=== PATIENT | female | born 1940 ===

== ENCOUNTER 2019-01-18 15:45 | Inpatient (IN) | payer MEDICARE, OTHER ==
[~2019-01-18] VITALS: Ht 157.5 cm; Wt 52.6 kg
[2019-01-18 16:25] VITALS: BP_SYST 134; BP_DIAS 73; BP_DIAS 76
--- NOTE | 2019-01-18 16:25 | NUR ---
PATIENT RECEIVED FROM [facility] PER STRETCHER. ALERT AND VERBALLY RESPONSIVE. ABLE TO ASSIST WITH TRANSFER FROM STRETCHER TO BED. SKIN WARM AND DRY TO TOUCH, RESPIRATION EVEN AND UNLABORED WITH O2 AT 2L VIA N/C. ABDOMEN SOFT AND NON DISTENDED WITH + BS IN ALL 4 QUADS. PATIENT ORIENTED TO SURROUNDINGS. BED IN LOWER POSITION AND LOCKED, CALL LIGHT AT REACH. INSTRUCTED TO CALL FOR ASSISTANCE NEEDED.
[2019-01-18 17:00] VITALS: BP 134/73
[2019-01-18] MEDS ORDERED: MELATONIN 5 MG TABLET PO PRN (17:30)
[2019-01-18] MEDS ORDERED: ACETAMINOPHEN/CODEINE 300MG - 30MG TAB PO PRN (17:30)
[2019-01-18] MEDS ORDERED: ALBUTEROL/IPRATROPIUM 3 ML NEB NEB PRN (17:30)
[2019-01-18] MEDS ORDERED: ACETAMINOPHEN 325 MG TAB PO PRN (17:30)
[2019-01-18] MEDS ORDERED: HYDRALAZINE HCL 20 MG/ML VIAL IV PRN (17:30)
[2019-01-18] MEDS ORDERED: ONDANSETRON HCL INJ 2MG/ML 2ML 2 MG/ML VIAL IV PRN (17:30)
--- NOTE | 2019-01-18 18:23 | Diagnostic Imaging Report ---
Examination: Single AP view of the chest. COMPARISON: None. INDICATION: Cough, flu DISCUSSION: Lines/tubes: None. Lungs: Right medial lower lung opacity. Left lung is clear. Pleura: No pleural effusion or pneumothorax. Heart and mediastinum: The heart and the mediastinum are unremarkable. Bones and soft tissues: No acute bony abnormalities. IMPRESSION: 1. Right medial lower lung opacity may reflect pneumonia Signed by: Dr. Dc Soto M.D. on 01/18/2019 6:19 PM
[2019-01-18] MEDS: ALBUTEROL/IPRATROPIUM 3 ML NEB NEB SCH (19:00)
[2019-01-18 19:14] VITALS: BP 134/73
--- NOTE | 2019-01-18 19:14 | NUR ---
PT IS RESTING IN BED WITH SON AT BEDSIDE. RESPIRATION IS EVEN AND UNLABORED, NO DISTRESS NOTED. BED IN THE LOWEST POSITION, LOCKED, AND CALL LIGHT WITHIN REACH. WILL CONTINUE TO MONITOR.
--- NOTE | 2019-01-18 19:31 | NUR ---
FLU SPECIMEN COLLECTED AND SENT TO THE LAB.
[2019-01-18 20:00] VITALS: BP 134/73
[2019-01-18] MEDS ORDERED: CEFTRIAXONE SOD 1 GM/NS 50 ML 50 ML IV SCH (20:00)
[2019-01-18] MEDS ORDERED: AZITHROMYCIN 500MG/NS 250 ML 250 ML IV SCH (20:00)
[2019-01-18] MEDS ORDERED: SODIUM CHLORIDE 0.9% 250ML 250 ML ONE (20:22)
[2019-01-19] VITALS: BP 142/67
[2019-01-19] MEDS: ALBUTEROL/IPRATROPIUM 3 ML NEB NEB SCH ×4 (03:00→11:00)
[2019-01-19 04:00] VITALS: BP 115/57
[2019-01-19 04:15] LABS: BASOPHILS % 0.2 % (0.0-1.0); HEMATOCRIT 33.8 % (34.2-44.1); HEMOGLOBIN 11.6 g/dL (12.0-16.0); LYMPHOCYTES # (AUTO) 0.9 (1.0-3.2); LYMPHOCYTES % 6.5 % (18.0-39.1); MEAN CORPUSCULAR HEMOGLOBIN 30.7 pg (28-32); MEAN CORPUSCULAR HGB CONC 34.3 g/dL (31-35); MEAN CORPUSCULAR VOLUME 89.4 fL (81-99); MONOCYTES # (AUTO) 0.5 (0.2-0.8); NEUTROPHILS # (AUTO) 11.5 (2.1-6.9); NEUTROPHILS % 88.4 % (38.7-80.0); PLATELET COUNT 316 x10e3/uL (140-360); RED BLOOD COUNT 3.78 x10e6/uL (3.6-5.1); RED CELL DISTRIBUTION WIDTH 12.6 % (11.7-14.4)
[2019-01-19 04:31] LABS: ANION GAP 13.1 mmol/L (8-16); BLOOD UREA NITROGEN 11 mg/dL (7-26); BUN/CREATININE RATIO 18 (6-25); CALCIUM 8.6 mg/dL (8.4-10.2); CARBON DIOXIDE 28 mmol/L (22-29); CHLORIDE 97 mmol/L (98-107); CREATININE, SERUM 0.62 mg/dL (0.57-1.11); EST GLOMERULAR FILTRATION RATE > 60 ML/MIN (60-); GLUCOSE 220 mg/dL (74-118); POTASSIUM 4.1 mmol/L (3.5-5.1); SODIUM 134 mmol/L (136-145)
[2019-01-19 05:07] LABS: B-TYPE NATRIURETIC PEPTIDE2 106.1 pg/mL (0-100)
[2019-01-19 05:15] LABS: BAND NEUTROPHILS % (MANUAL) 9 %; LYMPHOCYTES % (MANUAL) 2 % (19-48); MONOCYTES % (MANUAL) 6 % (3.4-9.0); NEUTROPHILS % (MANUAL) 83 % (40-74); PLATELET ESTIMATE ADEQUATE; PLATELET MORPHOLOGY COMMENT NORMAL; RBC MORPHOLOGY COMMENT NORMAL
[2019-01-19] MEDS ORDERED: BENZONATATE 100 MG CAP PO PRN (06:30)
--- NOTE | 2019-01-19 06:44 | NUR ---
PER ANDRES BECKFORD, STATISTICAL SECRETARY CHANGE CT ABD TO ABD/PELVS. WILL CONTINUE TO MONITOR.
--- NOTE | 2019-01-19 06:56 | NUR ---
RECEIVED BEDSIDE SHIFT REPORT FROM OFF GOING NURSE. PATIENT IS RESTING IN BED. NO S/S OF DISTRESS NOTED. SON AT BEDSIDE. CALL LIGHT WITHIN REACH. BED IN THE LOWEST POSITION. BED ALARM ON.
--- NOTE | 2019-01-19 07:37 | NUR ---
APPLIED BED PUMP TO MATTRESS.
[2019-01-19 07:44] VITALS: BP 141/63
[2019-01-19 08:04] VITALS: BP 141/63
--- NOTE | 2019-01-19 08:30 | NUR ---
PATIENT'S SON APPEARS TO BE INTOXICATED AND BELLIGERENT. CHARGE NURSE ASKED TO COME SPEAK TO SON. CHARGE NURSE IN TO SPEAK TO FAMILY MEMBER. Addendum: 01/19/19 at 1458 by JEREMY ARVIZU RN CHARGE NURSE AND ANIMAL ANATOMIST.
[2019-01-19] MEDS ORDERED: ATORVASTATIN CA20 MG PO (08:52)
[2019-01-19] MEDS ORDERED: CITRACAL + D31 EACH PO (08:52)
[2019-01-19] MEDS ORDERED: VITAMIN C1000 MG PO (08:52)
[2019-01-19] MEDS ORDERED: ALDACTAZIDE 251 EACH PO (08:52)
[2019-01-19] MEDS ORDERED: ZETIA10 MG PO (08:52)
[2019-01-19] MEDS ORDERED: B COMPLEX1 EACH PO (08:52)
[2019-01-19] MEDS ORDERED: VITAMIN D250000 UNIT PO (08:52)
--- NOTE | 2019-01-19 10:25 | NUR ---
ATTEMPTED TWICE, STAFF WITH PT, DOING ECHO, COULD NOT DO DPA
--- NOTE | 2019-01-19 11:03 | NUR ---
PATIENT OFF THE UNIT FOR CT SCAN AT THIS TIME.
[2019-01-19 11:20] VITALS: BP 116/56
--- NOTE | 2019-01-19 11:45 | NUR ---
PATIENT BACK TO UNIT FROM CT AT THIS TIME.
--- NOTE | 2019-01-19 12:32 | Consultation ---
DATE OF CONSULTATION: Pulmonary Critical Care Consultation CHIEF COMPLAINT: Congestion, cough, and dyspnea. HISTORY OF PRESENT ILLNESS: The patient is a 78-year-old woman. She has a history of breast cancer and a double mastectomy several years ago. She required chemotherapy, but has completed her treatment. She is not on any hormonal therapy. She follows with an oncologist in [place]. She lives in [place], [place] and is visiting her son here. Over the past week, the patient has noticed more congestion and cough. [facility] and was found to have an infiltrate in the right middle lobe. She was felt to have pneumonia and was started on IV antibiotics. PAST MEDICAL HISTORY: 1. History of breast cancer as noted above. 2. No prior cardiac problems. 3. No prior history of asthma or COPD. PAST SURGICAL HISTORY: Status post bilateral mastectomy. FAMILY HISTORY: History of cancer, diabetes, and cerebrovascular disease in the family. SOCIAL HISTORY: The patient has never been a smoker. She is not a drinker. She lives in [place], [place], which is near [place]. ALLERGIES: SHE HAS NO KNOWN DRUG ALLERGIES. REVIEW OF SYSTEMS: She does report some fevers over the past week. She does not complain of headache or neck pain. She has no chest pain. She does have some congestion and cough. She has some phlegm production. She denies any abdominal pain. She has no nausea or vomiting. She has no leg edema. PHYSICAL EXAMINATION: VITAL SIGNS: The patient is afebrile. The blood pressure is 115/57 and the saturation is 95% on 2 L. The pulse is 92. HEENT: Shows no facial swelling or erythema. CARDIAC: Reveals regular rate and rhythm with a systolic murmur. LUNGS: Auscultation of lungs reveals rhonchorous breath sounds bilaterally. There is no wheezing. ABDOMEN: Soft and nontender. There is no rebound or guarding. EXTREMITIES: Shows no leg edema or calf tenderness. There is no cyanosis or clubbing. SKIN: Shows no rashes. NEUROLOGICAL: Shows no focal abnormalities. LABORATORY DATA: White blood cell count is 13 and hemoglobin is 11.6. The platelet count is 316. The BUN to creatinine ratio is 11 to 0.6 and sodium is 134. RADIOGRAPHIC DATA: Chest x-ray shows a right middle lobe or lower lobe infiltrate. IMPRESSION: 1. Community-acquired pneumonia with sepsis, present on admission. 2. History of prior breast cancer, requiring mastectomy and chemotherapy. 3. History of hypertension. PLAN: 1. The patient has received intravenous fluids and has been started on antibiotics. 2. Continue current antibiotics. 3. Arrange for CT scan of the chest. 4. Echocardiogram. 5. Monitor blood counts. MD JOSE M Rodriguez/FLEX /[id number]
[2019-01-19] MEDS ORDERED: SODIUM CHLORIDE 0.9% 50ML 50 ML ONE (12:37)
[2019-01-19] MEDS ORDERED: IOPAMIDOL 370 MG/ML 200 ML INFUS..BTL INJ ONE (12:37)
[2019-01-19 14:23] LABS: BILIRUBIN,URINE NEGATIVE (NEGATIVE); CLARITY,URINE CLEAR (CLEAR); COLOR,URINE YELLOW (YELLOW); KETONES,URINE NEGATIVE (NEGATIVE); LEUKOCYTE ESTERASE ,URINE NEGATIVE (NEGATIVE); NITRITE,URINE NEGATIVE (NEGATIVE); PROTEIN,URINE DIPSTICK TRACE (NEGATIVE); URINE UROBILINOGEN 1 mg/dL (0.2 - 1)
--- NOTE | 2019-01-19 14:33 | Diagnostic Imaging Report ---
EXAM: CT Chest, Abdomen and Pelvis WITH contrast INDICATION: Pain. Breast cancer. Cough. Pneumonia. COMPARISON: None. TECHNIQUE: Chest, abdomen and pelvis were scanned utilizing a multidetector helical scanner from the lung apex to the pubic symphysis before and after administration of IV contrast. Coronal and sagittal reformations were obtained. Routine protocol was performed. Scan was performed when during portal venous phase. IV CONTRAST: 150 mL of Omnipaque 300 ORAL CONTRAST: Water RADIATION DOSE: Total DLP: 364.88 mGy*cm Estimated effective dose: (DLP x 0.015 x size factor) mSv COMPLICATIONS: None FINDINGS: LINES and TUBES: None. LUNGS AND AIRWAYS: Bibasilar subsegmental atelectasis. Mild patchy groundglass and nodular densities in the posterolateral right upper lobe on images 44 through 52 series 4 may represent inflammatory or infectious etiology possibly mild bronchopneumonia. PLEURA: Bilateral trace pleural effusion. HEART AND MEDIASTINUM: 8 mm low-attenuation nodule in the right thyroid lobe. 2 mm nodule in the right thyroid lobe. No mediastinal, hilar or axillary lymphadenopathy. The heart is normal in size.. There is no pericardial effusion. There are mild atherosclerotic calcifications in the aorta and coronary arteries. HEPATOBILIARY: Focal fatty infiltration about the falciform ligament fissure. No focal hepatic lesions. Mild central intrahepatic biliary dilatation. GALLBLADDER: No radio-opaque stones or sludge. No wall thickening. SPLEEN: No splenomegaly. PANCREAS: No focal masses or ductal dilatation. ADRENALS: No adrenal nodules KIDNEYS/URETERS: Kidneys enhance symmetrically. No hydronephrosis. 8 mm low-attenuation lesion in the medial interpolar region of the right kidney on coronal image 49. No stones. Bilateral small extrarenal pelvis. GI TRACT: No abnormal distention, wall thickening, or evidence of bowel obstruction. There are diverticula within the colon without evidence of diverticulitis. Appendix is normal. PELVIC ORGANS/BLADDER: Moderate volume of air within the nondependent portion of the urinary bladder lumen may be related to recent instrumentation including Duggan catheter placement, however, there is no full catheter at this time; correlate clinically. Small fat-containing ventral hernias bilaterally, left larger than right. LYMPH NODES: No lymphadenopathy. VESSELS: Unremarkable. PERITONEUM / RETROPERITONEUM: No free air or fluid. BONES: Compression fracture of T9 with 50% loss of vertebral body height, uncertain age. SOFT TISSUES: Bilateral breast implants appear ruptured intravenously.. IMPRESSION: 1. Colonic diverticulosis without CT evidence of diverticulitis. 2. Mild reticular nodular infiltrate in the inferior right upper lobe may be infectious or inflammatory in etiology. 3. Bibasilar subsegmental atelectasis associated with trace pleural effusions. 4. 0.8 cm indeterminate low-attenuation lesion in the right kidney. It cannot be characterized on single phase study. Consider follow-up US of kidneys in 6 months to evaluate for stability. 5. Compression fracture of T9 with 50% loss of vertebral body height, uncertain age. Signed by: Dr. Mann Rich M.D. on 01/19/2019 2:30 PM
--- NOTE | 2019-01-19 14:40 | NUR ---
PATIENT'S SON WANTING TO SPEAK TO CHARGE NURSE. CHARGE NURSE IN TO SPEAK TO SON AT THIS TIME.
--- NOTE | 2019-01-19 15:08 | NUR ---
PATIENT'S SON STATING THAT HE IS GOING TO TAKE PATIENT TO A DIFFERENT HOSPITAL. ADVISED PATIENT TO STAY TO CONTINUE TO WITH TREATMENT, PER PATIENT SHE IS GOING TO LEAVE AGAINST MEDICAL ADVICE. AMA PAPERWORK SIGNED. IV LINE TO RIGHT AC DCD WITH TIP INTACT, PRESSURE APPLIED TO SITE, NO BLEEDING NOTED. PATIENT TAKEN VIA WHEELCHAIR BY SON.
[2019-01-19 16:16] LABS: BACTERIA,URINE FEW /HPF; EPITHELIAL CELLS,URINE MODERATE /LPF; WBC,URINE (MAN) 0-5 /HPF (0-5)
[2019-01-19] MEDS ORDERED: GUAIFENESIN 600MG/DEXTROMETHORPHAN 30MG TABSR PO SCH (21:00)
== END 2019-01-19 15:09 | disposition left against medical advice (07) | DRG 871 ==
LOC: MED/SURG3 16:10
PROVIDERS: ADMIT Internal Medicine; ATTEND Internal Medicine
DX: A41.9 Sepsis, unspecified organism (principal); J18.9 Pneumonia, unspecified organism; E87.1 Hypo-osmolality and hyponatremia; E78.5 Hyperlipidemia, unspecified; Z85.3 Personal history of malignant neoplasm of breast; Z83.3 Family history of diabetes mellitus; Z82.3 Family history of stroke; Z80.9 Family history of malignant neoplasm, unspecified; Z90.13 Acquired absence of bilateral breasts and nipples; I10 Essential (primary) hypertension
CPT/HCPCS: 36415; 71045; 71260; 74177; 80048; 81001; 83036; 83880; 84443; 85025; 87040; 87086; 87400; 93306; 94640; J0456; J0696; J7050; Q9967